=== PATIENT | male | born 1950 | race Caucasian/White ===

== ENCOUNTER 2023-12-09 07:51 | Day surgery (SDC) | payer MEDICARE ==
[2023-12-08 11:20] VITALS: BMI 28.2
[2023-12-09] MEDS ORDERED: AFRIN NASAL MIST 15 ML BOT ONE ×2 (09:02→11:02)
[2023-12-09] MEDS ORDERED: EPINEPHrine 1 MG/ML VIAL ONE (11:02)
[2023-12-09] MEDS ORDERED: Lidocaine 1% w/Epinephrine 1:200K 30 ML VIAL ONE (11:03)
[2023-12-09] MEDS ORDERED: fentaNYL 50 mcg/mL 1 mL Vial ONE ×2 (11:08→12:31)
[2023-12-09] MEDS ORDERED: Lidocaine 1% PF 5 ML VIAL ONE (11:08)
[2023-12-09] MEDS ORDERED: PROPOFOL 20 ML ONE (11:08)
[2023-12-09] MEDS ORDERED: Rocuronium Bromide 10 MG/ML (10ML VIAL) ONE (11:09)
[2023-12-09] MEDS ORDERED: Dexmedetomidine 200 MCG/2 ML VIAL ONE (11:10)
[2023-12-09] MEDS ORDERED: SUGAMMADEX SODIUM 200 MG/2 ML VIAL ONE (11:11)
[2023-12-09] MEDS ORDERED: Sodium Chloride 0.9% 10 ML ONE (11:11)
[2023-12-09] MEDS ORDERED: Ondansetron PF 4 MG/2 ML Vial ONE (11:14)
[2023-12-09] MEDS ORDERED: Dexamethasone 4 mg/ml Vial ONE (11:14)
[2023-12-09] MEDS ORDERED: Oxymetazoline HCl 0.05% ( 15 ML ) ONE (11:39)
[2023-12-09] MEDS ORDERED: Triamcinolone 40 MG/ML VIAL ONE (11:55)
== END 2023-12-09 13:31 | disposition home or self-care (01) ==
LOC: CSHSDC 07:51
PROVIDERS: ATTEND Specialist
PROC: 099R8ZZ Drainage of Left Maxillary Sinus, Via Natural or Artificial Opening Endoscopic (ICD-10-PCS; principal; 2023-12-09)
PROC: 099Q8ZZ Drainage of Right Maxillary Sinus, Via Natural or Artificial Opening Endoscopic (ICD-10-PCS; 2023-12-09)
PROC: 09QT8ZZ Repair Left Frontal Sinus, Via Natural or Artificial Opening Endoscopic (ICD-10-PCS; 2023-12-09)
PROC: 09QS8ZZ Repair Right Frontal Sinus, Via Natural or Artificial Opening Endoscopic (ICD-10-PCS; 2023-12-09)
PROC: 09TV8ZZ Resection of Left Ethmoid Sinus, Via Natural or Artificial Opening Endoscopic (ICD-10-PCS; 2023-12-09)
PROC: 09TU8ZZ Resection of Right Ethmoid Sinus, Via Natural or Artificial Opening Endoscopic (ICD-10-PCS; 2023-12-09)
PROC: 099X8ZZ Drainage of Left Sphenoid Sinus, Via Natural or Artificial Opening Endoscopic (ICD-10-PCS; 2023-12-09)
PROC: 099W8ZZ Drainage of Right Sphenoid Sinus, Via Natural or Artificial Opening Endoscopic (ICD-10-PCS; 2023-12-09)
DX: J32.4 Chronic pansinusitis (principal); J34.3 Hypertrophy of nasal turbinates; H69.93 Unspecified Eustachian tube disorder, bilateral; H91.90 Unspecified hearing loss, unspecified ear; Z90.49 Acquired absence of other specified parts of digestive tract; Z85.828 Personal history of other malignant neoplasm of skin; Z88.8 Allergy status to other drugs, medicaments and biological substances; Z79.51 Long term (current) use of inhaled steroids; Z79.899 Other long term (current) drug therapy
CPT/HCPCS: 31256; 31257; 31276; J0171; J1100; J2405; J2704; J3010; J3301